=== PATIENT | male | born 1950 | race Caucasian/White ===

== ENCOUNTER 2023-07-07 12:49 | Day surgery (SDC) | payer MEDICARE, SELFPAY ==
[2023-07-07] VITALS (14 sets, daily range): BP systolic 90–138; BP diastolic 52–89; BMI 33.2
[2023-07-07] MEDS: LOW STRENGTH ASPIRIN 81 MG PO (13:47)
[2023-07-07] MEDS: NSS 315 ML IV (13:49)
[2023-07-07] MEDS: NSS 1000 IV (15:32)
--- NOTE | 2023-07-07 15:39 | ITS.CL.CATH ---
[facility] - Catheterization
Cardiac Catheterization
Procedure Report:
LEFT HEART CATHETERIZATION
Date of Procedure: July 07, 2023
Procedures performed:
1: Coronary angiography
2: Left ventriculography
Primary Care Physician: Dr. Didier Cid
Primary Rn Acute: Dr. Deondre Dunn
INDICATION: The patient is a 72-year-old man with past medical history significant for hypertension, hyperlipidemia, paroxysmal atrial fibrillation, history of pulmonary embolism in 2013, and severe obesity who is referred for cardiac
catheterization in light of increasing exertional dyspnea. Echocardiography performed on June 05 was unremarkable with normal LV systolic function and no significant valvular heart disease.
ACCESS: The patient was prepped and draped in usual sterile fashion. A 6 [place] sheath was placed in the right radial artery using the Seldinger over the wire technique.
HEMODYNAMIC FINDINGS (mmHg):
LV(s/d,EDP): 118/10, 13
Ao(s/d,m): 118/69, 92
ANGIOGRAPHIC FINDINGS:
Single-plane Left Ventriculography in FLOWERS Projection: Not done
Coronary Angiography:
Dominance: Right
Left Main: Normal
Left Anterior Descending: The left anterior descending artery is a medium to large caliber vessel that gives rise to a very high first diagonal branch which branches and a medium caliber second diagonal branch. These vessels are widely patent with
no focal disease and normal distal flow.
Ramus Intermedius: There is a large caliber branching ramus intermedius which appears angiographically normal.
Left Circumflex: The circumflex is a relatively small nondominant system that gives rise to 1 major branching obtuse marginal branch. This vessel is angiographically normal.
Right Coronary: The right coronary artery is a medium caliber dominant vessel gives rise to a medium caliber posterior descending artery and larger posterior left ventricular branch system. The mid right coronary artery has mild luminal
irregularities and there is a smooth 30% stenosis in the PLV branch as it leaves the AV groove. All vessels have normal distal flow.
Fluoroscopy Time (min): 2.2
Radiation Dose (mGy): 426
DAP (Gy.cm2): 39
Closure device: None. A TR band was applied for hemostasis at the right wrist.
Complications: None.
ASSESSMENT:
1: Near normal coronary arteries with only very mild luminal irregularities and normal distal flow.
2: Normal left ventricular filling pressures with well-controlled systemic hypertension.
CONCLUSIONS and RECOMMENDATIONS:
1: Continue medical therapy with clinical follow-up as scheduled.
Андрей Duran M.D.
Copy to: Dr. Didier Cid
--- NOTE | 2023-07-07 17:25 | PTCARENOTE ---
Pt post cardiac catheterization. Pt's blood pressure 90's/50's. Pt states his blood pressure is normally 130's/60'-80's. Pt is asymptomatic stating 'I feel great!' Dr Duran aware and in to evaluate pt. Dr Druan states he is going to discontinue
pt's hydrochlorothiazide for now. 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 Will continue to monitor.
== END 2023-07-07 18:15 | disposition home or self-care (01) ==
LOC: CATH 12:49
PROVIDERS: ATTENDING PHYSICIAN Internal Medicine Interventional Cardiology; FAMILY PHYSICIAN Internal Medicine; OTHER PHYSICIAN Internal Medicine Cardiovascular Disease
DX: I25.10 Atherosclerotic heart disease of native coronary artery without angina pectoris (principal); I48.0 Paroxysmal atrial fibrillation; R06.09 Other forms of dyspnea; E66.01 Morbid (severe) obesity due to excess calories; Z86.711 Personal history of pulmonary embolism; E78.5 Hyperlipidemia, unspecified; I10 Essential (primary) hypertension
CPT/HCPCS: 93458; C1894; Q9967